=== PATIENT | male | born 1960 | race Two or more races ===

== ENCOUNTER 2017-12-31 17:45 | Inpatient (IN) | payer MEDICARE, OTHER ==
--- NOTE | 2017-12-31 19:03 | ED Physician Chart ---
ED Chief Complaint/HPI - Patient Information Date Seen:: 12/31/17 Time Seen:: 19:03 Chief Complaint:: Agitation History of Present Illness:: 57 yo male had increased agitation, confusion, hallucination, and increased voices in head. He also became aggressive towards staff. Allergies:: Allergies Allergy/AdvReac Type Severity Reaction Status Date / Time No Known Allergies Allergy Verified 12/31/17 17:49 Vitals:: Vital Signs - 8 hr 12/31/17 17:57 Temp 97.9 F HR 75 RR 16 BP 134/74 O2 Sat % 97 ED Past Medical History - Past Medical History Past Medical History: HTN, DM, Asthma/COPD, Dyslipidemia, Thyroid disorder, Other (dysphagia, BPH) Psychiatricy History: Schizophrenia Family Medical History - Family Member Mother Hx Family Cancer: No Hx Family Coronary Artery Disease: No Hx Family Congestive Heart Failure: No Hx Family Stroke: No Hx Family Dementia: No Hx Family HIV: No ED Septic Shock - <6hrs of presentation: Vital Signs: Vital Signs - 8 hr 12/31/17 17:57 Temp 97.9 F HR 75 RR 16 BP 134/74 O2 Sat % 97 ED Discharge Plan - Patient Disposition Instructions: Psychosis
[2017-12-31 19:34] LABS: % BASOPHILS 0.8 % (0.0-2.0); % EOSINOPHILS 5.2 % (0.0-5.0); % LYMPHOCYTES 27.7 % (20.0-50.0); % MONOCYTES 8.9 % (2.0-10.0); % NEUTROPHILS 57.4 % (40.0-80.0); BASOPHILE ABSOLUTE 0.1 Th/cumm (0-0.2); EOSINOPHILE ABSOLUTE 0.4 Th/cmm (0.1-0.4); HEMATOCRIT 37.5 % (41.0-60); HEMOGLOBIN 12.6 gm/dL (12-16); MEAN CELL VOLUME 87.3 fl (80-99); MEAN CORPUSCULAR HEMOGLOBIN 29.4 pg (26.0-30.0); MEAN CORPUSCULAR HGB CONC 33.7 pg (28.0-36.0); MEAN PLATELET VOLUME 5.6 fl; MONOCYTE ABSOLUTE 0.6 Th/cmm (0.3-1.0); PLATELET COUNT 323 Th/cmm (150-400); RED CELL DISTRIBUTION WIDTH 13.1 % (11.5-20.0); WHITE BLOOD COUNT 7.1 Th/cmm (4.8-10.8)
[2017-12-31 20:05] LABS: ALB/GLOB RATIO 0.9 (1.0-1.8); ALBUMIN 2.6 gm/dL (4.2-5.5); ALKALINE PHOSPHATASE 57 U/L (34-104); ANION GAP 5.6 (7.0-16.0); BILIRUBIN,TOTAL 0.2 mg/dL (0.3-1.0); BUN - UREA NITROGEN 18 mg/dL (7-25); CALCIUM SERUM 8.6 mg/dL (8.6-10.3); CHLORIDE 92 mEq/L (98-107); CREATININE - SERUM 1.2 mg/dL (0.7-1.3); GFR AFRICAN-AMERICAN > 60.0 ml/min (>90); GFR NON AFRICAN-AMERICAN > 60.0 ml/min; GLUCOSE 67 mg/dL (70-105); POTASSIUM SERUM 4.6 mEq/L (3.5-5.1); SGOT 20 U/L (13-39); SGPT/ALT 7 U/L (7-52); SODIUM SERUM 128 mEq/L (136-145); TOTAL PROTEIN,SERUM 5.5 gm/dL (6.0-8.3)
[2018-01-01 02:42] VITALS: BP 158/93
[2018-01-01] MEDS ORDERED: Magnesium Hydroxide (MOM) 30 mL UDC PO PRN (02:44)
[2018-01-01 03:17] LABS: URINE MICROSCOPIC INDICATED? YES; URINE SOURCE RANDOM
[2018-01-01 03:23] LABS: URINE BILIRUBIN NEGATIVE (NEGATIVE); URINE BLOOD TRACE (NEGATIVE); URINE GLUCOSE (UA) NEGATIVE (NEGATIVE); URINE KETONE NEGATIVE (NEGATIVE); URINE LEUKOCYTE ESTERASE NEGATIVE (NEGATIVE); URINE NITRATE NEGATIVE (NEGATIVE); URINE PROTEIN 100 mg/dL (NEGATIVE); URINE UROBILINOGEN 0.2 E.U./dL (0.2 - 1.0)
[2018-01-01 03:25] LABS: URINE CLARITY CLEAR (CLEAR); URINE COLOR YELLOW
[2018-01-01 03:26] LABS: URINE BACTERIA NONE SEEN /hpf (NONE SEEN); URINE EPITHELIAL CELLS NONE SEEN /lpf (FEW); URINE RBC 0-2 /hpf (0-5); URINE WBC NONE SEEN /hpf (0-5)
[2018-01-01] MEDS ORDERED: Non-Formulary Item 1 EA (Metformin Hcl [Metformin Hcl Er] 1,000 MG) PO SCH (09:00)
--- NOTE | 2018-01-01 09:02 | Diagnostic Imaging Report ---
CHEST X-RAY: AP view INDICATION: Shortness of breath COMPARISON: None FINDINGS: Findings of CHF are seen with small left effusion and left basilar infiltrate. Cardiomegaly is noted. Osseous structures are intact. IMPRESSION: CHF with small left effusion and left basal infiltrates. Clinical correlation and follow-up recommended Cardiomegaly.
[2018-01-01] MEDS: Atorvastatin Calcium 10 MG TAB PO SCH (10:00)
[2018-01-01] MEDS: Benztropine 1 MG TAB PO SCH (21:32)
--- NOTE | 2018-01-02 00:24 | Psychosocial Evaluation ---
DATE OF SERVICE: PSYCHIATRIC INITIAL EVALUATION AND MENTAL STATUS EXAMINATION PATIENT'S AGE: 57-year-old. SEX: Male. PHYSICIAN: Said Ab Bergman MD, MPH CHIEF COMPLAINT: "I have been hearing voices." HISTORY OF PRESENT ILLNESS: The patient is a 57-year-old male who was admitted to the hospital because of increased hallucinations and the patient said has been hearing voices "making me upset and angry." The patient said that "the voices are reading my mind and let me lose concentration and let me lose control." The patient said that he has been feeling hopeless and helpless and has been easily agitated and in irritable mood because of increase of the voices. He also has been having arguments and fights because of that. PAST PSYCHIATRIC HISTORY: The patient has long history of the schizophrenia. The patient was taking Prolixin and changed it to Seroquel. PAST MEDICAL HISTORY: The patient has hypertension and congestive heart failure. SOCIAL HISTORY: The patient is living in a snf. The patient is single, never and has no children. Smokes 1 pack of cigarettes per day. He denies any alcohol or any street drug use. ALLERGIES: No known allergies. CURRENT MEDICATIONS: Depakote 500 mg twice a day. Seroquel 100 mg twice a day. MENTAL STATUS EXAMINATION: The patient appears his stated age. Anxious. Flat affect. In irritable moods. Harsh tone of voice. Thought processes are circumstantial and tangential but no flight of ideas. The patient denies any visual hallucinations, but admits to auditory hallucinations. The patient also admits to being paranoid and suspicious. The patient denies any thoughts of suicide or homicide. The patient is alert and oriented to time, place, person, and situation. Intact immediate, recent and remote memories. Fair insight. Fair judgment. He seems to be of average intelligence based on his verbal ability. ASSESSMENT: PRIMARY DIAGNOSIS: Chronic paranoid schizophrenia with acute exacerbation. MEDICAL DIAGNOSES: Hypertension. History of congestive heart failure. TREATMENT PLAN: We will monitor the patient's behavior closely. We will continue Depakote and Seroquel and we will adjust the dose. ESTIMATED LENGTH OF STAY: 5-7 days. THE PATIENT'S STRENGTHS AND WEAKNESSES: The patient's strength is not clear at this time. Weaknesses is ineffective coping and his hallucinations. AFTER DISCHARGE PLAN: Outpatient treatment and followup will continue as an outpatient. CRITERIA FOR DISCHARGE: The patient will not be psychotic and will stabilize psychotropic medications and will establish outpatient treatment plans. [facility]# [id number]
[2018-01-02] MEDS ORDERED: Levothyroxine 0.025 Mg Tab PO SCH (07:30)
[2018-01-02] MEDS: Atorvastatin Calcium 10 MG TAB PO SCH (08:44)
[2018-01-02] MEDS ORDERED: Sulfamethoxazole/TMP 800/160mg Tab PO SCH (17:00)
--- NOTE | 2018-01-02 17:38 | History & Physical ---
ADMIT DATE: 01/01/2018 REASON FOR ADMISSION: Psychiatric disorder. HISTORY OF PRESENT ILLNESS: This is a 57-year-old male who was admitted to [facility] for underlying psychiatric illnesses by Dr. Bergman. Dr. Bergman requested medical H and P for this patient. Upon reviewing, the patient's medical records signed, the patient was hospitalized in the _[facility] appears to have multiple medical issues including congestive heart failure, renal failure, hypothyroidism, COPD, hypertension. The patient lives at senior care facility, appeared to be somewhat poor historian. PAST MEDICAL HISTORY: Hypothyroidism, hypertension, renal failure, diabetes, congestive heart failure, osteomyelitis, pneumonia, sepsis. PAST SURGICAL HISTORY: None reported. SOCIAL HISTORY: Lives at nursing facility. No alcohol, tobacco or street drug use reported. CURRENT MEDICATIONS: On Lipitor, Cogentin, Celexa, Depakote ER, Synthroid, lisinopril, milk of mag, metformin, Seroquel, Flomax, vancomycin, and Ambian. REVIEW OF SYSTEMS: Bilateral leg swelling and redness. Denies any fever. No chills, no chest pain, no shortness of breath, no dizziness, no palpitations, no nausea, no vomiting, no abdominal pain, no headache, no trouble vision and trouble speech or any genitourinary symptoms or active bleeding. PHYSICAL EXAMINATION: VITAL SIGNS: Temperature 97.4, pulse 62, respirations 20, blood pressure 153/86, oxygen 97% on room air. Pain 0/10. GENERAL APPEARANCE: The patient does not seem in acute distress. HEENT: Unremarkable. HEART: S1, S2 normal. LUNGS: Clear to auscultation bilaterally. ABDOMEN: Soft, nontender, no guarding. NEUROLOGIC: Alert, awake, follows commands, moves all extremities. BILATERAL EXTREMITY EXAMS: Redness and swelling noted. Onychomycosis noted on both lower extremities. AVAILABLE LABORATORY DATA: Has been reviewed. ASSESSMENT: 1. Bilateral lower extremity cellulitis. 2. Chronic hyponatremia. 3. Diabetic nephropathy. 4. Hypothyroidism. 5. Hypertension. 6. Heart failure, unspecified. 7. Benign prostatic hypertrophy. 8. Mental disorder. PLAN: The patient admitted to Geropsych Unit. Psych evaluation was managed per Psychiatry. The patient was started on vancomycin. ID consult was ordered. Continue statin. The patient's blood sugar seems to running on lower side. Discharge glipizide. Resume levothyroxine A1c, lipid panel ordered. Wound care ordered. Monitor cellulitis. The patient's condition and plan of care discussed with nursing staff. Thank you, Dr. Bergman, for allowing me to participate in the care of this patient. JOB# [id number]
[2018-01-02] MEDS: Benztropine 1 MG TAB PO SCH (21:44)
--- NOTE | 2018-01-02 21:45 | General Progress Note ---
Subjective - Review of Systems Service Date: 01/02/18 Subjective: Patient seen and examined no new concern reported Objective - Results Result Diagrams: 12/31/17 19:28 12/31/17 19: Recent Labs: Laboratory Last Values WBC 7.1 Th/cmm (4.8-10.8) 12/31/17 19: RBC 4.30 Mil/cmm (4.30-5.70) 12/31/17 19: Hgb 12.6 gm/dL (12-16) 12/31/17 19: Hct 37.5 % (41.0-60) L 12/31/17 19: MCV 87.3 fl (80-99) 12/31/17: MCH 29.4 pg (26.0-30.0) 12/31/17: MCHC Differential 33.7 pg (28.0-36.0) 12/31/17: RDW 13.1 % (11.5-20.0) 12/31/17: Plt Count 323 Th/cmm (150-400) 12/31/17 19: MPV 5.6 fl 12/31/17 19: Neutrophils % 57.4 % (40.0-80.0) 12/31/17 19: Lymphocytes % 27.7 % (20.0-50.0) 12/31/17 19: Monocytes % 8.9 % (2.0-10.0) 12/31/17: Eosinophils % 5.2 % (0.0-5.0) H 12/31/17: Basophils % 0.8 % (0.0-2.0) 12/31/17 19: Sodium 128 mEq/L (136-145) L 12/31/17 19: Potassium 4.6 mEq/L (3.5-5.1) 12/31/17 19: Chloride 92 mEq/L (98-107) L 12/31/17 19: Carbon Dioxide 35.0 mEq/L (21.0-31.0) H 12/31/17 19:28 Anion Gap 5.6 (7.0-16.0) L 12/31/17 19:28 BUN 18 mg/dL (7-25) 12/31/17 19:28 Creatinine 1.2 mg/dL (0.7-1.3) 12/31/17 19:28 Est GFR ( Amer) > 60.0 ml/min (>90) 12/31/17 19:28 Est GFR (Non-Af Amer) > 60.0 ml/min 12/31/17 19:28 BUN/Creatinine Ratio 15.0 12/31/17 19:28 Glucose 67 mg/dL (70-105) L 12/31/17 19:28 Hemoglobin A1c % 6.0 % (4.0-6.0) 01/02/18 12:40 Calcium 8.6 mg/dL (8.6-10.3) 12/31/17 19:28 Total Bilirubin 0.2 mg/dL (0.3-1.0) L 12/31/17 19:28 AST 20 U/L (13-39) 12/31/17 19:28 ALT 7 U/L (7-52) 12/31/17 19:28 Alkaline Phosphatase 57 U/L (34-104) 12/31/17 19:28 Total Protein 5.5 gm/dL (6.0-8.3) L 12/31/17 19:28 Albumin 2.6 gm/dL (4.2-5.5) L 12/31/17 19:28 Globulin 2.9 gm/dL 12/31/17 19:28 Albumin/Globulin Ratio 0.9 (1.0-1.8) L 12/31/17 19:28 TSH 63.79 uIU/ml (0.34-5.60) H 12/31/17 19:28 Urine Source RANDOM 01/01/18 00:50 Urine Color YELLOW 01/01/18 00:50 Urine Clarity CLEAR (CLEAR) 01/01/18 00:50 Urine pH 7.0 (4.6 - 8.0) 01/01/18 00:50 Ur Specific [place] 1.015 (1.005-1.030) 01/01/18 00:50 Urine Protein 100 mg/dL (NEGATIVE) H 01/01/18 00:50 Urine Glucose (UA) NEGATIVE mg/dL (NEGATIVE) 01/01/18 00:50 Urine Ketones NEGATIVE mg/dL (NEGATIVE) 01/01/18 00:50 Urine Blood TRACE (NEGATIVE) 01/01/18 00:50 Urine Nitrate NEGATIVE (NEGATIVE) 01/01/18 00:50 Urine Bilirubin NEGATIVE (NEGATIVE) 01/01/18 00:50 Urine Urobilinogen 0.2 E.U./dL (0.2 - 1.0) 01/01/18 00:50 Ur Leukocyte Esterase NEGATIVE (NEGATIVE) 01/01/18 00:50 Urine RBC 0-2 /hpf (0-5) H 01/01/18 00:50 Urine WBC NONE SEEN /hpf (0-5) 01/01/18 00:50 Ur Epithelial Cells NONE SEEN /lpf (FEW) 01/01/18 00:50 Urine Bacteria NONE SEEN /hpf (NONE SEEN) 01/01/18 00:50 - Physical Exam Vitals and I&O: Vital Signs Temp 97.8 F 01/02/18 20:16 Pulse 89 01/02/18 20:16 Resp 19 01/02/18 20:16 BP 153/95 01/02/18 20:16 Pulse Ox 99 01/02/18 20:16 Intake & Output 01/02/18 01/02/18 01/03/18 06:59 18:59 06:59 Intake Total 1500 Balance 1500 Intake: Oral 1500 Other: # Voids 3 # Bowel Movements Active Medications: Current Medications Acetaminophen (Tylenol) 650 mg PO Q4HR PRN PRN Reason: Mild Pain / Temp above 100 Stop: 03/02/18 02:43 Last Admin: 01/01/18 10:00 Dose: 650 mg Atorvastatin Calcium (Lipitor) 20 mg PO DAILY [facility] Stop: 03/02/18 08:59 Last Admin: 01/02/18 08:44 Dose: 20 mg Benztropine Mesylate (Cogentin) 1 mg PO HS [facility] Stop: 03/02/18 20:59 Last Admin: 01/01/18 21:32 Dose: 1 mg Citalopram Hydrobromide (Celexa) 20 mg PO DAILY [facility] PRN Reason: Protocol Stop: 03/02/18 08:59 Last Admin: 01/02/18 08:44 Dose: 20 mg Clindamycin HCl (Cleocin Hcl) 300 mg PO QID [facility] Stop: 03/03/18 16:59 Last Admin: 01/02/18 17:40 Dose: 300 mg Divalproex Sodium (Depakote Er) 500 mg PO BID FUNMI PRN Reason: Protocol Stop: 03/02/18 08:59 Last Admin: 01/02/18 17:40 Dose: 500 mg Levofloxacin (Levaquin) 500 mg PO DAILY [facility] Stop: 03/03/18 14:14 Last Admin: 01/02/18 15:00 Dose: 500 mg Levothyroxine Sodium 0.1 mg/ (Levothyroxine Sodium 0.075 mg) 0.175 mg PO QDAC [facility] Stop: 03/03/18 07:29 Last Admin: 01/02/18 06:59 Dose: 0.175 mg Lisinopril (Zestril) 40 mg PO DAILY [facility] Stop: 03/03/18 10:29 Last Admin: 01/02/18 11:11 Dose: Not Given Lorazepam (Ativan) 0.5 mg PO Q4HR PRN; Protocol PRN Reason: Agitation Stop: 01/31/18 02:43 Last Admin: 01/01/18 04:47 Dose: 0.5 mg Magnesium Hydroxide (Milk Of Magnesia) 30 ml PO HS PRN PRN Reason: Constipation Metformin HCl (Glucophage) 1,000 mg PO BID [facility] Stop: 03/02/18 16:59 Last Admin: 01/02/18 17:40 Dose: 1,000 mg Quetiapine Fumarate (Seroquel) 100 mg PO BID [facility]MI PRN Reason: Protocol Stop: 03/02/18 08:59 Last Admin: 01/02/18 17:40 Dose: 100 mg Senna (Senna) 17.2 mg PO HS [facility] Stop: 03/02/18 20:59 Last Admin: 01/01/18 21:35 Dose: 17.2 mg Tamsulosin HCl (Flomax) 0.4 mg PO DAILY [facility] Stop: 03/02/18 08:59 Last Admin: 01/02/18 08:44 Dose: 0.4 mg Zolpidem Tartrate (Ambien) 5 mg PO HS PRN PRN Reason: Insomnia Stop: 03/02/18 02:43 Last Admin: 01/01/18 21:35 Dose: 5 mg Cardiovascular: Regular rate Lungs: Clear to auscultation Extremities: Edema, Other (redness noted) Assessment/Plan - Assessment Assessment: Bilateral leg cellulitis HTN Nicotine dependancy Hypothyroidism - Plan Plan: Case was discussed with CIRA Zavala Smoking cessation advised Lisinopril increased to 40 mg Monitor BP Plan of care discussed with nursing staff
--- NOTE | 2018-01-03 00:01 | Consultation ---
Consult Note - Consult Note Service Date: 01/02/18 Referring Physician: Gab Rosa Consult Note: PHYSICIAN Consultation Note: Date of Admission: 12/31/17 Purpose of Consultation: oral antibiotics for osteomyelitis of the left foot, cellultis of legs. Chief Complaint: Patient LISA MANJARREZ was admitted to location [facility] with SCHZOPHRENIA. History of Present Illness: Patient is 57 year old male with history Past Medical History: Hypothyroidism, hypertension, renal failure, DM2, CHF, Osteomyelitis of the left foot, and chronic dry wound of the left foot. treated at the outside facility with IV antibiotics. On initial evaluation, he was afebrile and WBC count was 7,200. He was receiving vanco IV. He was admitted to the [facility] unit for psychiatric disorder. As he cannot get IV antibiotics at the [facility] unit. ID Consult was called for oral antibiotic use. there is no culture available. As per staff, he has received 4 weeks of IV antibiotics. Allergies Allergy/AdvReac Type Severity Reaction Status Date / Time No Known Allergies Allergy Verified 12/31/17 17:49 Vital Signs Temp 97.8 F 01/02/18 20:16 Pulse 89 01/02/18 20:16 Resp 19 01/02/18 20:16 BP 153/95 01/02/18 20:16 Pulse Ox 99 01/02/18 20:16 Intake & Output 01/02/18 01/02/18 01/03/18 06:59 18:59 06:59 Intake Total 1500 Balance 1500 Intake: Oral 1500 Other: # Voids 3 # Bowel Movements Laboratory Results - last 24 hr 01/02/18 12:40 Hemoglobin A1c % 6.0 Home Medication Medication Instructions Recorded Type Acetaminophen [Tylenol] 650 mg PO Q6HR PRN 12/31/17 History Atorvastatin Calcium [Lipitor] 20 mg PO DAILY 12/31/17 History Benztropine [Cogentin*] 1 mg PO HS 12/31/17 History Citalopram Hydrobromide [Celexa] 20 mg PO DAILY 12/31/17 History Divalproex ER [Depakote ER] 500 mg PO BID 12/31/17 History Glipizide 10 mg PO BID 12/31/17 History Lisinopril [Zestril] 10 mg PO DAILY 12/31/17 History Metformin HCl [Metformin HCl ER] 1,000 mg PO BID 12/31/17 History QUEtiapine Fumarate [SEROquel] 100 mg PO BID 12/31/17 History Sennosides A and B [Senna] 8.6 mg PO DAILY 12/31/17 History Tamsulosin HCl [Flomax] 0.4 mg PO DAILY 12/31/17 History Current Medications Generic Name Dose Route Start Last Admin Trade Name Freq PRN Reason Stop Dose Admin Acetaminophen 650 mg 01/01/18 02:44 01/01/18 10:00 Tylenol PO 03/02/18 02:43 650 mg Q4HR PRN Administration Mild Pain / Temp above 100 Atorvastatin Calcium 20 mg 01/01/18 09:00 01/02/18 08:44 Lipitor PO 03/02/18 08:59 20 mg DAILY FUNMI Administration Benztropine Mesylate 1 mg 01/01/18 21:00 01/02/18 21:44 Cogentin PO 03/02/18 20:59 1 mg HS FUNMI Administration Citalopram Hydrobromide 20 mg 01/01/18 09:00 01/02/18 08:44 Celexa PO 03/02/18 08:59 20 mg DAILY FUNMI Administration Protocol Clindamycin HCl 300 mg 01/02/18 17:00 01/02/18 21:44 Cleocin Hcl PO 03/03/18 16:59 300 mg QID FUNMI Administration Divalproex Sodium 500 mg 01/01/18 09:00 01/02/18 17:40 Depakote Er PO 03/02/18 08:59 500 mg BID FUNMI Administration Protocol Levofloxacin 500 mg 01/02/18 14:15 01/02/18 15:00 Levaquin PO 03/03/18 14:14 500 mg DAILY FUNMI Administration Levothyroxine Sodium 0.1 mg/ 0.175 mg 01/02/18 07:30 01/02/18 06:59 Levothyroxine Sodium 0.075 mg PO 03/03/18 07:29 0.175 mg QDAC FUNMI Administration Lisinopril 40 mg 01/02/18 10:30 01/02/18 11:11 Zestril PO 03/03/18 10:29 Not Given DAILY [facility]MI Lorazepam 0.5 mg 01/01/18 02:44 01/01/18 04:47 Ativan PO 01/31/18 02:43 0.5 mg Q4HR PRN Administration Agitation Protocol Magnesium Hydroxide 30 ml 01/01/18 02:44 Milk Of Magnesia PO HS PRN Constipation Metformin HCl 1,000 mg 01/01/18 17:00 01/02/18 17:40 Glucophage PO 03/02/18 16:59 1,000 mg BID FUNMI Administration Quetiapine Fumarate 100 mg 01/01/18 09:00 01/02/18 17:40 Seroquel PO 03/02/18 08:59 100 mg BID FUNMI Administration Protocol Senna 17.2 mg 01/01/18 21:00 01/02/18 21:44 Senna PO 03/02/18 20:59 17.2 mg HS FUNMI Administration Tamsulosin HCl 0.4 mg 01/01/18 09:00 01/02/18 08:44 Flomax PO 03/02/18 08:59 0.4 mg DAILY FUNMI Administration Zolpidem Tartrate 5 mg 01/01/18 02:44 01/02/18 21:44 Ambien PO 03/02/18 02:43 5 mg HS PRN Administration Insomnia Review of Systems: A 12 point ROS was reviewed with the pertinent positive and negatives noted in the HPI. c/o pain in the legs and has healing dry ulcer in the left foot, He denies any fever, chills, or generalized weakness. Social History Lives at the nursing facility. Smoking Status Never smoker Family Medical History Unknown. Physical Exam: General: Comfortable, not in any acute distress. WN WD. HEENT: Head: NC NT. Oral Cavity: moist, and oink tongue, eyes: no pallow, no iocterus. Pupill PERRLA, EOMI. Neck: Supple. No JVD. Cardio: S1 and S2 WNL. Respiratory: Vesicular breath sounds. Abdominal: Soft NT ND BS Genital/Urinary: Extremities: NCCE, there is redness of the lower legs bilaterally, There is deformity of the left foot with dry longitudinal wound on the lateral aspect. Neurological: Alert, awake oriented x3. Assessment: 1. Osteomyelitis of the left foot. may have charcot foot too, 2. Bilateral leg cellultis. 3. DM2 4. HTN. Plan: Will change antibiotics to Levaquin and clindamycin po. Meanwhile, may get the reports from outside facility. Thank you, Dr Saúl Rosa for involving me in taking care of this patient. Signed, Ramon Bethea M.D. 01/03/180001
[2018-01-03 08:02] LABS: CHOLESTEROL 133 mg/dL (<200); HDL -HIGH DENSITY LIPOPROTEIN 41 mg/dL (23-92); TRIGLYCERIDES 190 mg/dL (<150)
[2018-01-03] MEDS: Atorvastatin Calcium 10 MG TAB PO SCH (09:40)
--- NOTE | 2018-01-03 14:59 | Infectious Disease Prog Note ---
Infectious Disease Subjective - Review of Systems Service Date: 01/03/18 Subjective: There is no new change, no fever. less pain in his legs. wound in the left foot has same dry wound without any swelling. Infectious Disease Objective - Results Result Diagrams: 12/31/17 19:28 12/31/17 19: Recent Labs: Laboratory Last Values WBC 7.1 Th/cmm (4.8-10.8) 12/31/17 19: RBC 4.30 Mil/cmm (4.30-5.70) 12/31/17 19: Hgb 12.6 gm/dL (12-16) 12/31/17 19: Hct 37.5 % (41.0-60) L 12/31/17 19: MCV 87.3 fl (80-99) 12/31/17 19: MCH 29.4 pg (26.0-30.0) 12/31/17: MCHC Differential 33.7 pg (28.0-36.0) 12/31/17: RDW 13.1 % (11.5-20.0) 12/31/17 19: Plt Count 323 Th/cmm (150-400) 12/31/17 19: MPV 5.6 fl 12/31/17 19: Neutrophils % 57.4 % (40.0-80.0) 12/31/17 19: Lymphocytes % 27.7 % (20.0-50.0) 12/31/17: Monocytes % 8.9 % (2.0-10.0) 12/31/17: Eosinophils % 5.2 % (0.0-5.0) H 12/31/17 19: Basophils % 0.8 % (0.0-2.0) 12/31/17 19: Sodium 128 mEq/L (136-145) L 12/31/17 19: Potassium 4.6 mEq/L (3.5-5.1) 12/31/17 19: Chloride 92 mEq/L (98-107) L 12/31/17 19: Carbon Dioxide 35.0 mEq/L (21.0-31.0) H 12/31/17 19:28 Anion Gap 5.6 (7.0-16.0) L 12/31/17 19:28 BUN 18 mg/dL (7-25) 12/31/17 19:28 Creatinine 1.2 mg/dL (0.7-1.3) 12/31/17 19:28 Est GFR ( Amer) > 60.0 ml/min (>90) 12/31/17 19:28 Est GFR (Non-Af Amer) > 60.0 ml/min 12/31/17 19:28 BUN/Creatinine Ratio 15.0 12/31/17 19:28 Glucose 67 mg/dL (70-105) L 12/31/17 19:28 Hemoglobin A1c % 6.0 % (4.0-6.0) 01/02/18 12:40 Calcium 8.6 mg/dL (8.6-10.3) 12/31/17 19:28 Total Bilirubin 0.2 mg/dL (0.3-1.0) L 12/31/17 19:28 AST 20 U/L (13-39) 12/31/17 19:28 ALT 7 U/L (7-52) 12/31/17 19:28 Alkaline Phosphatase 57 U/L (34-104) 12/31/17 19:28 Total Protein 5.5 gm/dL (6.0-8.3) L 12/31/17 19:28 Albumin 2.6 gm/dL (4.2-5.5) L 12/31/17 19:28 Globulin 2.9 gm/dL 12/31/17 19:28 Albumin/Globulin Ratio 0.9 (1.0-1.8) L 12/31/17 19:28 Triglycerides 190 mg/dL (<150) H 01/03/18 07:07 Cholesterol 133 mg/dL (<200) 01/03/18 07:07 LDL Cholesterol Direct 58 mg/dL (75-193) L 01/03/18 07:07 HDL Cholesterol 41 mg/dL (23-92) 01/03/18 07:07 TSH 63.79 uIU/ml (0.34-5.60) H 12/31/17 19:28 Urine Source RANDOM 01/01/18 00:50 Urine Color YELLOW 01/01/18 00:50 Urine Clarity CLEAR (CLEAR) 01/01/18 00:50 Urine pH 7.0 (4.6 - 8.0) 01/01/18 00:50 Ur Specific [place] 1.015 (1.005-1.030) 01/01/18 00:50 Urine Protein 100 mg/dL (NEGATIVE) H 01/01/18 00:50 Urine Glucose (UA) NEGATIVE mg/dL (NEGATIVE) 01/01/18 00:50 Urine Ketones NEGATIVE mg/dL (NEGATIVE) 01/01/18 00:50 Urine Blood TRACE (NEGATIVE) 01/01/18 00:50 Urine Nitrate NEGATIVE (NEGATIVE) 01/01/18 00:50 Urine Bilirubin NEGATIVE (NEGATIVE) 01/01/18 00:50 Urine Urobilinogen 0.2 E.U./dL (0.2 - 1.0) 01/01/18 00:50 Ur Leukocyte Esterase NEGATIVE (NEGATIVE) 01/01/18 00:50 Urine RBC 0-2 /hpf (0-5) H 01/01/18 00:50 Urine WBC NONE SEEN /hpf (0-5) 01/01/18 00:50 Ur Epithelial Cells NONE SEEN /lpf (FEW) 01/01/18 00:50 Urine Bacteria NONE SEEN /hpf (NONE SEEN) 01/01/18 00:50 - Physical Exam Vitals and I&O: Vital Signs Temp 99.0 F 01/03/18 05:58 Pulse 65 01/03/18 09:42 Resp 20 01/03/18 05:58 BP 127/76 01/03/18 09:42 Pulse Ox 92 01/03/18 05:58 Intake & Output 01/02/18 01/03/18 01/03/18 18:59 06:59 18:59 Intake Total 1500 180 Balance 1500 180 Intake: Oral 1500 180 Other: # Voids 3 2 # Bowel Movements 0 Active Medications: Current Medications Acetaminophen (Tylenol) 650 mg PO Q4HR PRN PRN Reason: Mild Pain / Temp above 100 Stop: 03/02/18 02:43 Last Admin: 01/03/18 04:53 Dose: 650 mg Atorvastatin Calcium (Lipitor) 20 mg PO DAILY [facility] Stop: 03/02/18 08:59 Last Admin: 01/03/18 09:40 Dose: 20 mg Benztropine Mesylate (Cogentin) 1 mg PO HS [facility] Stop: 03/02/18 20:59 Last Admin: 01/02/18 21:44 Dose: 1 mg Citalopram Hydrobromide (Celexa) 20 mg PO DAILY [facility] PRN Reason: Protocol Stop: 03/02/18 08:59 Last Admin: 01/03/18 09:40 Dose: 20 mg Clindamycin HCl (Cleocin Hcl) 300 mg PO QID [facility] Stop: 03/03/18 16:59 Last Admin: 01/03/18 13:22 Dose: 300 mg Divalproex Sodium (Depakote Er) 500 mg PO BID [facility] PRN Reason: Protocol Stop: 03/02/18 08:59 Last Admin: 01/03/18 09:40 Dose: 500 mg Levofloxacin (Levaquin) 500 mg PO DAILY [facility] Stop: 03/03/18 14:14 Last Admin: 01/03/18 09:41 Dose: 500 mg Levothyroxine Sodium 0.1 mg/ (Levothyroxine Sodium 0.075 mg) 0.175 mg PO QDAC [facility] Stop: 03/03/18 07:29 Last Admin: 01/03/18 07:13 Dose: Not Given Lisinopril (Zestril) 40 mg PO DAILY [facility] Stop: 03/03/18 10:29 Last Admin: 01/03/18 09:42 Dose: 40 mg Lorazepam (Ativan) 0.5 mg PO Q4HR PRN; Protocol PRN Reason: Agitation Stop: 01/31/18 02:43 Last Admin: 01/01/18 04:47 Dose: 0.5 mg Magnesium Hydroxide (Milk Of Magnesia) 30 ml PO HS PRN PRN Reason: Constipation Metformin HCl (Glucophage) 1,000 mg PO BID [facility] Stop: 03/02/18 16:59 Last Admin: 01/03/18 09:40 Dose: 1,000 mg Quetiapine Fumarate (Seroquel) 100 mg PO BID [facility] PRN Reason: Protocol Stop: 03/02/18 08:59 Last Admin: 01/03/18 09:40 Dose: 100 mg Senna (Senna) 17.2 mg PO HS [facility] Stop: 03/02/18 20:59 Last Admin: 01/02/18 21:44 Dose: 17.2 mg Tamsulosin HCl (Flomax) 0.4 mg PO DAILY [facility] Stop: 03/02/18 08:59 Last Admin: 01/03/18 09:40 Dose: 0.4 mg Zolpidem Tartrate (Ambien) 5 mg PO HS PRN PRN Reason: Insomnia Stop: 03/02/18 02:43 Last Admin: 01/02/18 21:44 Dose: 5 mg General: no acute distress, well developed, well nourished, cachectic HEENT: atraumatic, normocephalic, PERRLA, EOMI, moist mucous membrane Neck: supple, no thyromegaly Cardiovascular: S1S2, regular Lungs: clear to auscultation bilaterally, clear to percussion Abdomen: soft, no tender, no distended, no mass Extremities: other (dry wound in left leg laterally, no erythema, discharge or induration. deformed left foot. b/l leg erythema improving.), no cyanosis, no clubbing, no edema Neurological: awake, alert, oriented Skin: intact Infectious Disease Assmt/Plan - Assessment Assessment: 1. Osteomyelitis of the left foot. may have charcot foot too, 2. Bilateral leg cellultis. 3. DM2 4. HTN. - Plan Plan: Will change antibiotics to Levaquin and clindamycin po. Meanwhile, may get the reports from outside facility.
--- NOTE | 2018-01-03 19:56 | Progress Notes ---
DATE: 01/03/2018 A 57-year-old male admitted to the hospital with increased hallucinations and hearing voices. The patient noted to be doing better with Seroquel, going to groups more, still somewhat paranoid, cannot watch TV. Apparently, he feels that the TV is addressing him and alluding to him. Dr. Bergman saw the patient on 01/01/2018. I did review the intake, staff noting he seems somewhat calmer, good response to the medications so far but still talking about the TV talking to him. The patient with history of schizophrenia. ASSESSMENT: The patient seems to be improving somewhat calmer but still with psychosis. PLAN: We will continue to monitor. We will adjust and titrate medications. Apparently, the patient had been on Prolixin and Dr. Bergman transitioned over to Seroquel with good efficacy. JOB# [id number]
[2018-01-03] MEDS: Benztropine 1 MG TAB PO SCH (21:16)
--- NOTE | 2018-01-03 21:47 | General Progress Note ---
Subjective - Review of Systems Service Date: 01/03/18 Subjective: Patient seen and examined no new concern reported Objective - Results Result Diagrams: 12/31/17 19:28 12/31/17 19: Recent Labs: Laboratory Last Values WBC 7.1 Th/cmm (4.8-10.8) 12/31/17 19: RBC 4.30 Mil/cmm (4.30-5.70) 12/31/17 19: Hgb 12.6 gm/dL (12-16) 12/31/17 19: Hct 37.5 % (41.0-60) L 12/31/17 19: MCV 87.3 fl (80-99) 12/31/17: MCH 29.4 pg (26.0-30.0) 12/31/17: MCHC Differential 33.7 pg (28.0-36.0) 12/31/17: RDW 13.1 % (11.5-20.0) 12/31/17: Plt Count 323 Th/cmm (150-400) 12/31/17 19: MPV 5.6 fl 12/31/17 19: Neutrophils % 57.4 % (40.0-80.0) 12/31/17 19: Lymphocytes % 27.7 % (20.0-50.0) 12/31/17 19: Monocytes % 8.9 % (2.0-10.0) 12/31/17: Eosinophils % 5.2 % (0.0-5.0) H 12/31/17: Basophils % 0.8 % (0.0-2.0) 12/31/17 19: Sodium 128 mEq/L (136-145) L 12/31/17 19: Potassium 4.6 mEq/L (3.5-5.1) 12/31/17 19: Chloride 92 mEq/L (98-107) L 12/31/17 19: Carbon Dioxide 35.0 mEq/L (21.0-31.0) H 12/31/17 19:28 Anion Gap 5.6 (7.0-16.0) L 12/31/17 19:28 BUN 18 mg/dL (7-25) 12/31/17 19:28 Creatinine 1.2 mg/dL (0.7-1.3) 12/31/17 19:28 Est GFR ( Amer) > 60.0 ml/min (>90) 12/31/17 19:28 Est GFR (Non-Af Amer) > 60.0 ml/min 12/31/17 19:28 BUN/Creatinine Ratio 15.0 12/31/17 19:28 Glucose 67 mg/dL (70-105) L 12/31/17 19:28 Hemoglobin A1c % 6.0 % (4.0-6.0) 01/02/18 12:40 Calcium 8.6 mg/dL (8.6-10.3) 12/31/17 19:28 Total Bilirubin 0.2 mg/dL (0.3-1.0) L 12/31/17 19:28 AST 20 U/L (13-39) 12/31/17 19:28 ALT 7 U/L (7-52) 12/31/17 19:28 Alkaline Phosphatase 57 U/L (34-104) 12/31/17 19:28 Total Protein 5.5 gm/dL (6.0-8.3) L 12/31/17 19:28 Albumin 2.6 gm/dL (4.2-5.5) L 12/31/17 19:28 Globulin 2.9 gm/dL 12/31/17 19:28 Albumin/Globulin Ratio 0.9 (1.0-1.8) L 12/31/17 19:28 Triglycerides 190 mg/dL (<150) H 01/03/18 07:07 Cholesterol 133 mg/dL (<200) 01/03/18 07:07 LDL Cholesterol Direct 58 mg/dL (75-193) L 01/03/18 07:07 HDL Cholesterol 41 mg/dL (23-92) 01/03/18 07:07 TSH 63.79 uIU/ml (0.34-5.60) H 12/31/17 19:28 Urine Source RANDOM 01/01/18 00:50 Urine Color YELLOW 01/01/18 00:50 Urine Clarity CLEAR (CLEAR) 01/01/18 00:50 Urine pH 7.0 (4.6 - 8.0) 01/01/18 00:50 Ur Specific [place] 1.015 (1.005-1.030) 01/01/18 00:50 Urine Protein 100 mg/dL (NEGATIVE) H 01/01/18 00:50 Urine Glucose (UA) NEGATIVE mg/dL (NEGATIVE) 01/01/18 00:50 Urine Ketones NEGATIVE mg/dL (NEGATIVE) 01/01/18 00:50 Urine Blood TRACE (NEGATIVE) 01/01/18 00:50 Urine Nitrate NEGATIVE (NEGATIVE) 01/01/18 00:50 Urine Bilirubin NEGATIVE (NEGATIVE) 01/01/18 00:50 Urine Urobilinogen 0.2 E.U./dL (0.2 - 1.0) 01/01/18 00:50 Ur Leukocyte Esterase NEGATIVE (NEGATIVE) 01/01/18 00:50 Urine RBC 0-2 /hpf (0-5) H 01/01/18 00:50 Urine WBC NONE SEEN /hpf (0-5) 01/01/18 00:50 Ur Epithelial Cells NONE SEEN /lpf (FEW) 01/01/18 00:50 Urine Bacteria NONE SEEN /hpf (NONE SEEN) 01/01/18 00:50 - Physical Exam Vitals and I&O: Vital Signs Temp 98.4 F 01/03/18 19:48 Pulse 91 01/03/18 19:48 Resp 20 01/03/18 19:48 BP 163/89 01/03/18 19:48 Pulse Ox 93 01/03/18 19:48 Intake & Output 01/03/18 01/03/18 01/04/18 06:59 18:59 06:59 Intake Total 180 120 Balance 180 120 Intake: Oral 180 120 Other: # Voids 2 3 # Bowel Movements 0 0 Active Medications: Current Medications Acetaminophen (Tylenol) 650 mg PO Q4HR PRN PRN Reason: Mild Pain / Temp above 100 Stop: 03/02/18 02:43 Last Admin: 01/03/18 04:53 Dose: 650 mg Atorvastatin Calcium (Lipitor) 20 mg PO DAILY [facility] Stop: 03/02/18 08:59 Last Admin: 01/03/18 09:40 Dose: 20 mg Benztropine Mesylate (Cogentin) 1 mg PO HS [facility] Stop: 03/02/18 20:59 Last Admin: 01/03/18 21:16 Dose: 1 mg Citalopram Hydrobromide (Celexa) 20 mg PO DAILY [facility] PRN Reason: Protocol Stop: 03/02/18 08:59 Last Admin: 01/03/18 09:40 Dose: 20 mg Clindamycin HCl (Cleocin Hcl) 300 mg PO QID [facility] Stop: 03/03/18 16:59 Last Admin: 01/03/18 21:16 Dose: 300 mg Divalproex Sodium (Depakote Er) 500 mg PO BID [facility] PRN Reason: Protocol Stop: 03/02/18 08:59 Last Admin: 01/03/18 16:47 Dose: 500 mg Levofloxacin (Levaquin) 500 mg PO DAILY [facility] Stop: 03/03/18 14:14 Last Admin: 01/03/18 09:41 Dose: 500 mg Levothyroxine Sodium 0.1 mg/ (Levothyroxine Sodium 0.075 mg) 0.175 mg PO QDAC [facility] Stop: 03/03/18 07:29 Last Admin: 01/03/18 07:13 Dose: Not Given Lisinopril (Zestril) 40 mg PO DAILY [facility] Stop: 03/03/18 10:29 Last Admin: 01/03/18 09:42 Dose: 40 mg Lorazepam (Ativan) 0.5 mg PO Q4HR PRN; Protocol PRN Reason: Agitation Stop: 01/31/18 02:43 Last Admin: 01/01/18 04:47 Dose: 0.5 mg Magnesium Hydroxide (Milk Of Magnesia) 30 ml PO HS PRN PRN Reason: Constipation Metformin HCl (Glucophage) 1,000 mg PO BID [facility] Stop: 03/02/18 16:59 Last Admin: 01/03/18 16:49 Dose: 1,000 mg Quetiapine Fumarate (Seroquel) 100 mg PO BID [facility] PRN Reason: Protocol Stop: 03/02/18 08:59 Last Admin: 01/03/18 16:47 Dose: 100 mg Senna (Senna) 17.2 mg PO HS [facility] Stop: 03/02/18 20:59 Last Admin: 01/03/18 21:16 Dose: 17.2 mg Tamsulosin HCl (Flomax) 0.4 mg PO DAILY [facility] Stop: 03/02/18 08:59 Last Admin: 01/03/18 09:40 Dose: 0.4 mg Zolpidem Tartrate (Ambien) 5 mg PO HS PRN PRN Reason: Insomnia Stop: 03/02/18 02:43 Last Admin: 01/03/18 21:16 Dose: 5 mg Cardiovascular: Regular rate Lungs: Clear to auscultation Extremities: Edema, Other (redness improving) Assessment/Plan - Assessment Assessment: Bilateral leg cellulitis HTN Nicotine dependancy Hypothyroidism - Plan Plan: Case was discussed with ID Continue levaquin and Clinda Synthroid Smoking cessation advised Lisinopril increased to 40 mg Monitor BP Plan of care discussed with nursing staff
[2018-01-04] MEDS: Atorvastatin Calcium 10 MG TAB PO SCH (09:33)
[2018-01-04 14:39] LABS: % BASOPHILS 0.6 % (0.0-2.0); % EOSINOPHILS 4.4 % (0.0-5.0); % MONOCYTES 8.4 % (2.0-10.0); % NEUTROPHILS 60.6 % (40.0-80.0); EOSINOPHILE ABSOLUTE 0.3 Th/cmm (0.1-0.4); HEMATOCRIT 37.7 % (41.0-60); HEMOGLOBIN 12.4 gm/dL (12-16); LYMPHOCYTE ABSOLUTE 1.6 Th/cmm (1.5-3.0); MEAN CORPUSCULAR HEMOGLOBIN 28.7 pg (26.0-30.0); MEAN CORPUSCULAR HGB CONC 32.9 pg (28.0-36.0); MEAN PLATELET VOLUME 5.7 fl; MONOCYTE ABSOLUTE 0.5 Th/cmm (0.3-1.0); NEUTROPHILE ABSOLUTE 3.7 Th/cmm (1.8-8.0); PLATELET COUNT 311 Th/cmm (150-400); RED BLOOD COUNT 4.33 Mil/cmm (4.30-5.70); RED CELL DISTRIBUTION WIDTH 13.1 % (11.5-20.0); WHITE BLOOD COUNT 6.1 Th/cmm (4.8-10.8)
[2018-01-04 14:45] LABS: ANION GAP 7.8 (7.0-16.0); BUN - UREA NITROGEN 23 mg/dL (7-25); CALCIUM SERUM 8.3 mg/dL (8.6-10.3); CARBON DIOXIDE 30.5 mEq/L (21.0-31.0); CHLORIDE 94 mEq/L (98-107); CREATININE - SERUM 1.2 mg/dL (0.7-1.3); GFR AFRICAN-AMERICAN > 60.0 ml/min (>90); GFR NON AFRICAN-AMERICAN > 60.0 ml/min; GLUCOSE 111 mg/dL (70-105); POTASSIUM SERUM 4.3 mEq/L (3.5-5.1); SODIUM SERUM 128 mEq/L (136-145)
--- NOTE | 2018-01-04 16:45 | Progress Notes ---
DATE: 01/04/2018 SUBJECTIVE: The patient admitted due to voices, hallucinations, seems to be doing better, had been somewhat aggressive upon initial presentation, but seemingly calmer. His medications have been adjusted and titrated. Currently on Seroquel, seems to be quite sensitive to Seroquel as well as citalopram and Depakote. The patient remained somewhat occlusive, isolative, asking to go home, but there are concerns about his ongoing behaviors, ongoing psychotic symptoms, impulse control issues. He is somewhat isolative today. ASSESSMENT: The patient seems calmer, but still with ongoing symptoms, concerns about safety, still treating his psychotic symptoms. Again, we are still treating his psychotic symptoms. MEDICATIONS: Reviewed. PLAN: We will continue to monitor. We will order a Depakote level. We will monitor and follow up. JOB# [id number]
--- NOTE | 2018-01-04 20:58 | General Progress Note ---
Subjective - Review of Systems Service Date: 01/04/18 Subjective: Patient seen and examined leg swelling and redness improving Objective - Results Result Diagrams: 01/04/18 14:21 01/04/18 14:21 Recent Labs: Laboratory Last Values WBC 6.1 Th/cmm (4.8-10.8) 01/04/18 14:21 RBC 4.33 Mil/cmm (4.30-5.70) 01/04/18 14:21 Hgb 12.4 gm/dL (12-16) 01/04/18 14:21 Hct 37.7 % (41.0-60) L 01/04/18 14:21 MCV 87.0 fl (80-99) 01/04/18 14:21 MCH 28.7 pg (26.0-30.0) 01/04/18 14: MCHC Differential 32.9 pg (28.0-36.0) 01/04/18 14:21 RDW 13.1 % (11.5-20.0) 01/04/18 14:21 Plt Count 311 Th/cmm (150-400) 01/04/18 14:21 MPV 5.7 fl 01/04/18 14:21 Neutrophils % 60.6 % (40.0-80.0) 01/04/18 14:21 Lymphocytes % 26.0 % (20.0-50.0) 01/04/18 14:21 Monocytes % 8.4 % (2.0-10.0) 01/04/18 14:21 Eosinophils % 4.4 % (0.0-5.0) 01/04/18 14: Basophils % 0.6 % (0.0-2.0) 01/04/18 14:21 Sodium 128 mEq/L (136-145) L 01/04/18 14:21 Potassium 4.3 mEq/L (3.5-5.1) 01/04/18 14:21 Chloride 94 mEq/L (98-107) L 01/04/18 14:21 Carbon Dioxide 30.5 mEq/L (21.0-31.0) 01/04/18 14:21 Anion Gap 7.8 (7.0-16.0) 01/04/18 14:21 BUN 23 mg/dL (7-25) 01/04/18 14:21 Creatinine 1.2 mg/dL (0.7-1.3) 01/04/18 14:21 Est GFR ( Amer) > 60.0 ml/min (>90) 01/04/18 14:21 Est GFR (Non-Af Amer) > 60.0 ml/min 01/04/18 14:21 BUN/Creatinine Ratio 19.2 01/04/18 14:21 Glucose 111 mg/dL (70-105) H 01/04/18 14:21 Hemoglobin A1c % 6.0 % (4.0-6.0) 01/02/18 12:40 Calcium 8.3 mg/dL (8.6-10.3) L 01/04/18 14:21 Total Bilirubin 0.2 mg/dL (0.3-1.0) L 12/31/17 19:28 AST 20 U/L (13-39) 12/31/17 19:28 ALT 7 U/L (7-52) 12/31/17 19:28 Alkaline Phosphatase 57 U/L (34-104) 12/31/17 19:28 Total Protein 5.5 gm/dL (6.0-8.3) L 12/31/17 19:28 Albumin 2.6 gm/dL (4.2-5.5) L 12/31/17 19:28 Globulin 2.9 gm/dL 12/31/17 19:28 Albumin/Globulin Ratio 0.9 (1.0-1.8) L 12/31/17 19:28 Triglycerides 190 mg/dL (<150) H 01/03/18 07:07 Cholesterol 133 mg/dL (<200) 01/03/18 07:07 LDL Cholesterol Direct 58 mg/dL (75-193) L 01/03/18 07:07 HDL Cholesterol 41 mg/dL (23-92) 01/03/18 07:07 TSH 63.79 uIU/ml (0.34-5.60) H 12/31/17 19:28 Urine Source RANDOM 01/01/18 00:50 Urine Color YELLOW 01/01/18 00:50 Urine Clarity CLEAR (CLEAR) 01/01/18 00:50 Urine pH 7.0 (4.6 - 8.0) 01/01/18 00:50 Ur Specific [place] 1.015 (1.005-1.030) 01/01/18 00:50 Urine Protein 100 mg/dL (NEGATIVE) H 01/01/18 00:50 Urine Glucose (UA) NEGATIVE mg/dL (NEGATIVE) 01/01/18 00:50 Urine Ketones NEGATIVE mg/dL (NEGATIVE) 01/01/18 00:50 Urine Blood TRACE (NEGATIVE) 01/01/18 00:50 Urine Nitrate NEGATIVE (NEGATIVE) 01/01/18 00:50 Urine Bilirubin NEGATIVE (NEGATIVE) 01/01/18 00:50 Urine Urobilinogen 0.2 E.U./dL (0.2 - 1.0) 01/01/18 00:50 Ur Leukocyte Esterase NEGATIVE (NEGATIVE) 01/01/18 00:50 Urine RBC 0-2 /hpf (0-5) H 01/01/18 00:50 Urine WBC NONE SEEN /hpf (0-5) 01/01/18 00:50 Ur Epithelial Cells NONE SEEN /lpf (FEW) 01/01/18 00:50 Urine Bacteria NONE SEEN /hpf (NONE SEEN) 01/01/18 00:50 - Physical Exam Vitals and I&O: Vital Signs Temp 98.3 F 01/04/18 19:39 Pulse 64 01/04/18 19:39 Resp 20 01/04/18 19:39 BP 145/79 01/04/18 19:39 Pulse Ox 96 01/04/18 19:39 Intake & Output 01/04/18 01/04/18 01/05/18 06:59 18:59 06:59 Intake Total 300 180 Balance 300 180 Intake: Oral 300 180 Other: # Voids 2 2 # Bowel Movements 0 1 Active Medications: Current Medications Acetaminophen (Tylenol) 650 mg PO Q4HR PRN PRN Reason: Mild Pain / Temp above 100 Stop: 03/02/18 02:43 Last Admin: 01/03/18 04:53 Dose: 650 mg Atorvastatin Calcium (Lipitor) 20 mg PO DAILY [facility] Stop: 03/02/18 08:59 Last Admin: 01/04/18 09:33 Dose: 20 mg Benztropine Mesylate (Cogentin) 1 mg PO HS [facility] Stop: 03/02/18 20:59 Last Admin: 01/03/18 21:16 Dose: 1 mg Citalopram Hydrobromide (Celexa) 20 mg PO DAILY [facility] PRN Reason: Protocol Stop: 03/02/18 08:59 Last Admin: 01/04/18 09:33 Dose: 20 mg Clindamycin HCl (Cleocin Hcl) 300 mg PO QID [facility] Stop: 03/03/18 16:59 Last Admin: 01/04/18 16:57 Dose: 300 mg Divalproex Sodium (Depakote Er) 500 mg PO BID [facility] PRN Reason: Protocol Stop: 03/02/18 08:59 Last Admin: 01/04/18 16:56 Dose: 500 mg Levofloxacin (Levaquin) 500 mg PO DAILY [facility] Stop: 03/03/18 14:14 Last Admin: 01/04/18 09:32 Dose: 500 mg Levothyroxine Sodium 0.1 mg/ (Levothyroxine Sodium 0.075 mg) 0.175 mg PO QDAC [facility] Stop: 03/03/18 07:29 Last Admin: 01/04/18 06:44 Dose: Not Given Lisinopril (Zestril) 40 mg PO DAILY [facility] Stop: 03/03/18 10:29 Last Admin: 01/04/18 09:34 Dose: 40 mg Lorazepam (Ativan) 0.5 mg PO Q4HR PRN; Protocol PRN Reason: Agitation Stop: 01/31/18 02:43 Last Admin: 01/01/18 04:47 Dose: 0.5 mg Magnesium Hydroxide (Milk Of Magnesia) 30 ml PO HS PRN PRN Reason: Constipation Metformin HCl (Glucophage) 1,000 mg PO BID [facility] Stop: 03/02/18 16:59 Last Admin: 01/04/18 16:56 Dose: 1,000 mg Quetiapine Fumarate (Seroquel) 100 mg PO BID [facility] PRN Reason: Protocol Stop: 03/02/18 08:59 Last Admin: 01/04/18 16:56 Dose: 100 mg Senna (Senna) 17.2 mg PO HS [facility] Stop: 03/02/18 20:59 Last Admin: 01/03/18 21:16 Dose: 17.2 mg Tamsulosin HCl (Flomax) 0.4 mg PO DAILY [facility] Stop: 03/02/18 08:59 Last Admin: 01/04/18 09:33 Dose: 0.4 mg Zolpidem Tartrate (Ambien) 5 mg PO HS PRN PRN Reason: Insomnia Stop: 03/02/18 02:43 Last Admin: 01/03/18 21:16 Dose: 5 mg Cardiovascular: Regular rate Lungs: Clear to auscultation Extremities: Other (redness improving) Assessment/Plan - Assessment Assessment: Bilateral leg cellulitis HTN Nicotine dependancy Hypothyroidism Chronic hyponatremia - Plan Plan: Case was discussed with ID Continue levaquin and Clinda Synthroid Smoking cessation advised Lisinopril increased to 40 mg Monitor BP Plan of care discussed with nursing staff
[2018-01-04] MEDS: Benztropine 1 MG TAB PO SCH (21:15)
[2018-01-05] MEDS: Atorvastatin Calcium 10 MG TAB PO SCH (09:36)
--- NOTE | 2018-01-05 13:41 | General Progress Note ---
Subjective - Review of Systems Service Date: 01/05/18 Subjective: Patient seen and examined leg swelling and redness improving Objective - Results Result Diagrams: 01/04/18 14:21 01/04/18 14:21 Recent Labs: Laboratory Last Values WBC 6.1 Th/cmm (4.8-10.8) 01/04/18 14:21 RBC 4.33 Mil/cmm (4.30-5.70) 01/04/18 14:21 Hgb 12.4 gm/dL (12-16) 01/04/18 14:21 Hct 37.7 % (41.0-60) L 01/04/18 14:21 MCV 87.0 fl (80-99) 01/04/18 14:21 MCH 28.7 pg (26.0-30.0) 01/04/18 14: MCHC Differential 32.9 pg (28.0-36.0) 01/04/18 14:21 RDW 13.1 % (11.5-20.0) 01/04/18 14:21 Plt Count 311 Th/cmm (150-400) 01/04/18 14:21 MPV 5.7 fl 01/04/18 14:21 Neutrophils % 60.6 % (40.0-80.0) 01/04/18 14:21 Lymphocytes % 26.0 % (20.0-50.0) 01/04/18 14:21 Monocytes % 8.4 % (2.0-10.0) 01/04/18 14:21 Eosinophils % 4.4 % (0.0-5.0) 01/04/18 14: Basophils % 0.6 % (0.0-2.0) 01/04/18 14:21 Sodium 128 mEq/L (136-145) L 01/04/18 14:21 Potassium 4.3 mEq/L (3.5-5.1) 01/04/18 14:21 Chloride 94 mEq/L (98-107) L 01/04/18 14:21 Carbon Dioxide 30.5 mEq/L (21.0-31.0) 01/04/18 14:21 Anion Gap 7.8 (7.0-16.0) 01/04/18 14:21 BUN 23 mg/dL (7-25) 01/04/18 14:21 Creatinine 1.2 mg/dL (0.7-1.3) 01/04/18 14:21 Est GFR ( Amer) > 60.0 ml/min (>90) 01/04/18 14:21 Est GFR (Non-Af Amer) > 60.0 ml/min 01/04/18 14:21 BUN/Creatinine Ratio 19.2 01/04/18 14:21 Glucose 111 mg/dL (70-105) H 01/04/18 14:21 Hemoglobin A1c % 6.0 % (4.0-6.0) 01/02/18 12:40 Calcium 8.3 mg/dL (8.6-10.3) L 01/04/18 14:21 Total Bilirubin 0.2 mg/dL (0.3-1.0) L 12/31/17 19:28 AST 20 U/L (13-39) 12/31/17 19:28 ALT 7 U/L (7-52) 12/31/17 19:28 Alkaline Phosphatase 57 U/L (34-104) 12/31/17 19:28 Total Protein 5.5 gm/dL (6.0-8.3) L 12/31/17 19:28 Albumin 2.6 gm/dL (4.2-5.5) L 12/31/17 19:28 Globulin 2.9 gm/dL 12/31/17 19:28 Albumin/Globulin Ratio 0.9 (1.0-1.8) L 12/31/17 19:28 Triglycerides 190 mg/dL (<150) H 01/03/18 07:07 Cholesterol 133 mg/dL (<200) 01/03/18 07:07 LDL Cholesterol Direct 58 mg/dL (75-193) L 01/03/18 07:07 HDL Cholesterol 41 mg/dL (23-92) 01/03/18 07:07 TSH 63.79 uIU/ml (0.34-5.60) H 12/31/17 19:28 Urine Source RANDOM 01/01/18 00:50 Urine Color YELLOW 01/01/18 00:50 Urine Clarity CLEAR (CLEAR) 01/01/18 00:50 Urine pH 7.0 (4.6 - 8.0) 01/01/18 00:50 Ur Specific [place] 1.015 (1.005-1.030) 01/01/18 00:50 Urine Protein 100 mg/dL (NEGATIVE) H 01/01/18 00:50 Urine Glucose (UA) NEGATIVE mg/dL (NEGATIVE) 01/01/18 00:50 Urine Ketones NEGATIVE mg/dL (NEGATIVE) 01/01/18 00:50 Urine Blood TRACE (NEGATIVE) 01/01/18 00:50 Urine Nitrate NEGATIVE (NEGATIVE) 01/01/18 00:50 Urine Bilirubin NEGATIVE (NEGATIVE) 01/01/18 00:50 Urine Urobilinogen 0.2 E.U./dL (0.2 - 1.0) 01/01/18 00:50 Ur Leukocyte Esterase NEGATIVE (NEGATIVE) 01/01/18 00:50 Urine RBC 0-2 /hpf (0-5) H 01/01/18 00:50 Urine WBC NONE SEEN /hpf (0-5) 01/01/18 00:50 Ur Epithelial Cells NONE SEEN /lpf (FEW) 01/01/18 00:50 Urine Bacteria NONE SEEN /hpf (NONE SEEN) 01/01/18 00:50 Valproic Acid 39.4 ug/mL (50.0-100.0) L 01/05/18 07:50 - Physical Exam Vitals and I&O: Vital Signs Temp 98.4 F 01/05/18 05:45 Pulse 61 01/05/18 09:35 Resp 18 01/05/18 05:45 BP 154/86 01/05/18 09:35 Pulse Ox 93 01/05/18 05:45 Intake & Output 01/04/18 01/05/18 01/05/18 18:59 06:59 18:59 Intake Total 180 Balance 180 Intake: Oral 180 Other: # Voids 4 # Bowel Movements 0 Active Medications: Current Medications Acetaminophen (Tylenol) 650 mg PO Q4HR PRN PRN Reason: Mild Pain / Temp above 100 Stop: 03/02/18 02:43 Last Admin: 01/03/18 04:53 Dose: 650 mg Atorvastatin Calcium (Lipitor) 20 mg PO DAILY [facility] Stop: 03/02/18 08:59 Last Admin: 01/05/18 09:36 Dose: 20 mg Benztropine Mesylate (Cogentin) 1 mg PO HS [facility] Stop: 03/02/18 20:59 Last Admin: 01/04/18 21:15 Dose: 1 mg Citalopram Hydrobromide (Celexa) 20 mg PO DAILY [facility] PRN Reason: Protocol Stop: 03/02/18 08:59 Last Admin: 01/05/18 09:36 Dose: 20 mg Clindamycin HCl (Cleocin Hcl) 300 mg PO QID [facility] Stop: 03/03/18 16:59 Last Admin: 01/05/18 12:47 Dose: 300 mg Divalproex Sodium (Depakote Er) 500 mg PO BID [facility] PRN Reason: Protocol Stop: 03/02/18 08:59 Last Admin: 01/05/18 09:36 Dose: 500 mg Levofloxacin (Levaquin) 500 mg PO DAILY [facility] Stop: 03/03/18 14:14 Last Admin: 01/05/18 09:35 Dose: 500 mg Levothyroxine Sodium 0.1 mg/ (Levothyroxine Sodium 0.075 mg) 0.175 mg PO QDAC [facility] Stop: 03/03/18 07:29 Last Admin: 01/05/18 06:35 Dose: 0.175 mg Lisinopril (Zestril) 40 mg PO DAILY [facility] Stop: 03/03/18 10:29 Last Admin: 01/05/18 09:35 Dose: 40 mg Lorazepam (Ativan) 0.5 mg PO Q4HR PRN; Protocol PRN Reason: Agitation Stop: 01/31/18 02:43 Last Admin: 01/01/18 04:47 Dose: 0.5 mg Magnesium Hydroxide (Milk Of Magnesia) 30 ml PO HS PRN PRN Reason: Constipation Metformin HCl (Glucophage) 1,000 mg PO BID [facility] Stop: 03/02/18 16:59 Last Admin: 01/05/18 09:35 Dose: 1,000 mg Quetiapine Fumarate (Seroquel) 100 mg PO BID [facility] PRN Reason: Protocol Stop: 03/02/18 08:59 Last Admin: 01/05/18 09:36 Dose: 100 mg Senna (Senna) 17.2 mg PO HS [facility] Stop: 03/02/18 20:59 Last Admin: 01/04/18 21:16 Dose: 17.2 mg Tamsulosin HCl (Flomax) 0.4 mg PO DAILY [facility] Stop: 03/02/18 08:59 Last Admin: 01/05/18 09:35 Dose: 0.4 mg Zolpidem Tartrate (Ambien) 5 mg PO HS PRN PRN Reason: Insomnia Stop: 03/02/18 02:43 Last Admin: 01/03/18 21:16 Dose: 5 mg Cardiovascular: Regular rate Lungs: Clear to auscultation Extremities: Other (redness improving) Assessment/Plan - Assessment Assessment: Bilateral leg cellulitis HTN Nicotine dependancy Hypothyroidism Chronic hyponatremia - Plan Plan: Case was discussed with ID Rene mi and Clinda Synthroid Smoking cessation advised Lisinopril increased to 40 mg Monitor BP Plan of care discussed with nursing staff
[2018-01-05] MEDS: Benztropine 1 MG TAB PO SCH (20:28)
--- NOTE | 2018-01-06 06:14 | Progress Notes ---
DATE: 01/05/2018 SUBJECTIVE: Chart reviewed and the patient interviewed. Also discussed the patient's condition with the staff and reviewed records and labs. The patient is still anxious and withdrawn and he is still interacting minimally with others. The patient also still needs redirections at times. He also is still having difficulty controlling his temper at times. On the other hand, the patient is a cooperative and compliant with taking his medications with no side effects of medications. ASSESSMENT: The patient is still agitated and confused. TREATMENT PLAN: Continue to monitor his behavior and his condition closely. Also, continue to work on his anger and we will continue to follow up. JOB# [id number]
--- NOTE | 2018-01-06 08:17 | Discharge Summary ---
DATE OF DISCHARGE: 01/06/2018 DATE OF DISCHARGE: 01/06/2018. FINAL DIAGNOSIS AND PRIMARY DIAGNOSIS: Chronic paranoid schizophrenia with acute exacerbation. MEDICAL DIAGNOSES: 1. Hypertension. 2. History of congestive heart failure. REASON FOR HOSPITALIZATION: The patient was admitted to the hospital because of increased agitation and because of psychosis. The patient also was paranoid and easily agitated and medication dose. Also, was actively hallucinating and he reported auditory hallucinations that made him angry and upset. HOSPITAL COURSE: The patient was agitated and was in irritable mood. He continued to complain of hallucinations. The patient was restarted on Depakote 500 twice a day as well as on Seroquel and the dose adjusted to 100 mg twice a day. Gradually, the patient's affect was brighter. The patient was less agitated and he was less paranoid. The patient was also compliant with taking his medications with no side effect of medications. Physical examination of the patient was basically within normal, as mentioned under medical diagnosis, the patient had no major medical problems while in the hospital. Labs was basically within normal except Depakote blood level that was done on the 01/05/2018 came back to be 39.4. EXPECTED OUTCOME AFTER DISCHARGE: Fair if the patient continues with his treatment with outpatient programs. [facility]# [id number]
[2018-01-06] MEDS: Atorvastatin Calcium 10 MG TAB PO SCH (08:45)
--- NOTE | 2018-01-11 22:48 | Progress Notes ---
DATE: SUBJECTIVE: Chart reviewed and the patient interviewed. Also discussed the patient's condition with the staff and reviewed the records and labs. The patient is still anxious and is still having episodes of severe anger. The patient also is still reporting auditory hallucinations and he is still hearing voices "making me angry." Also, still have unpredictable behavior and is still easily irritable and agitated. Otherwise, the patient is compliant with taking his medications and he denies any side effects of medications. ASSESSMENT: The patient is still psychotic and needs close monitoring. TREATMENT PLAN: Continue monitoring his behavior closely and continue to adjust psychotropic medications and work on behavioral modification. JOB# [id number]
== END 2018-01-06 13:15 | disposition home or self-care (01) | DRG 885 ==
LOC: ER 17:45 → GERO2 23:58
PROVIDERS: ADMIT Psychiatry & Neurology Psychiatry; ATTEND Psychiatry & Neurology Psychiatry
DX: F20.0 Paranoid schizophrenia (principal); I11.0 Hypertensive heart disease with heart failure; M86.8X7 Other osteomyelitis, ankle and foot; E11.21 Type 2 diabetes mellitus with diabetic nephropathy; E11.69 Type 2 diabetes mellitus with other specified complication; L03.115 Cellulitis of right lower limb; E87.1 Hypo-osmolality and hyponatremia; L03.116 Cellulitis of left lower limb; I50.9 Heart failure, unspecified; F17.210 Nicotine dependence, cigarettes, uncomplicated; E03.9 Hypothyroidism, unspecified; N40.0 Benign prostatic hyperplasia without lower urinary tract symptoms; J44.9 Chronic obstructive pulmonary disease, unspecified; E78.5 Hyperlipidemia, unspecified; R13.10 Dysphagia, unspecified; F29 Unspecified psychosis not due to a substance or known physiological condition; Z79.84 Long term (current) use of oral hypoglycemic drugs
CPT/HCPCS: 36415-UA; 71045-TC; 80048-TC; 80053-TC; 80061-TC; 80164-TC; 81001-TC; 83036-90; 84443-TC; 85025-TC; 90899; 93005; G0410; Z7610